=== PATIENT | female | born 1965 | race Caucasian/White ===

== ENCOUNTER 2017-11-10 15:22 | Outpatient (CLI) | payer BC | END 2017-11-10 15:23 | disposition home or self-care (01) | LOC: BICMAMMO 15:22 | DX: Z12.31 Encounter for screening mammogram for malignant neoplasm of breast (principal); Z80.3 Family history of malignant neoplasm of breast | CPT/HCPCS: 77063; 77067 ==

== ENCOUNTER 2018-01-12 11:30 | Outpatient (CLI) | payer BC | END 2018-01-12 11:31 | disposition home or self-care (01) | LOC: BICRAD 11:30 | PROVIDERS: ATTEND Internal Medicine Rheumatology | DX: M25.511 Pain in right shoulder (principal); M19.011 Primary osteoarthritis, right shoulder ==

== ENCOUNTER 2018-01-24 10:01 | Outpatient (CLI) | payer BC ==
--- NOTE | 2018-01-24 14:52 | NM ---
RADIONUCLIDE WHOLE BODY BONE SCAN: Date: 01/24/18 HISTORY: Paget's disease. Osteitis deformans. COMPARISON: 12/30/16. FINDINGS: Physiologic uptake of radiotracer throughout the skeleton is apparent. No abnormal areas of uptake ar e evident. The uptake previously seen within the lumbar spine and left pelvis is much less pronounced . IMPRESSION: Gradual resolution of scintigraphic abnormality. No new abnormalities are apparent. POS: [facility]
== END 2018-01-24 10:02 | disposition home or self-care (01) ==
LOC: NM 10:01
PROVIDERS: ATTEND Internal Medicine Rheumatology
DX: M88.9 Osteitis deformans of unspecified bone (principal)
CPT/HCPCS: 78306; A9503

== ENCOUNTER 2019-02-06 08:30 | Outpatient (CLI) | payer BC ==
--- NOTE | 2019-02-06 08:51 | RAD ---
XR Tib Fib Lt Leg 2 View HISTORY: Injury to leg. COMPARISON: None. FINDINGS: There are no signs of fracture or dislocation. No radiopaque foreign bodies are seen. IMPRESSION: Unremarkable left tib-fib.
== END 2019-02-06 08:31 | disposition home or self-care (01) ==
LOC: BICRAD 08:30
PROVIDERS: ATTEND Physician Assistant Medical
DX: S89.92XA Unspecified injury of left lower leg, initial encounter (principal)

== ENCOUNTER 2019-02-12 14:25 | Outpatient (CLI) | payer BC ==
--- NOTE | 2019-02-12 15:14 | RAD ---
LEFT FOOT THREE VIEWS: History: Fall. Left foot pain. FINDINGS/IMPRESSION: No acute fracture or dislocation is seen. Calcaneal spur is present. POS: [facility]
--- NOTE | 2019-02-12 15:28 | RAD ---
LEFT ANKLE THREE VIEWS: HISTORY: Fall. Left ankle pain. FINDINGS: Soft tissue swelling is present. The ankle mortise is maintained. No acute fracture or dislocation is identified. There are calcaneal spurs. POS: [facility]
== END 2019-02-12 14:26 | disposition home or self-care (01) ==
LOC: BICRAD 14:25
PROVIDERS: ATTEND Physician Assistant Medical
DX: M79.672 Pain in left foot (principal); M79.89 Other specified soft tissue disorders; M77.32 Calcaneal spur, left foot

== ENCOUNTER 2019-03-26 09:24 | Outpatient (CLI) | payer BC ==
--- NOTE | 2019-03-26 13:51 | NM ---
NM Bone Scan STANDARD HISTORY: History of Paget's disease also neck and shoulder pain. COMPARISON: 01/24/2018 exam. FINDINGS: Examination is performed using 33 mCi 90 9M technetium MDP. Shows a normal distribution of radiopharmaceutical. Bilateral renal as well as bladder activity is noted. IMPRESSION: Unremarkable bone scan.
== END 2019-03-26 09:25 | disposition home or self-care (01) ==
LOC: NM 09:24
PROVIDERS: ATTEND Internal Medicine Rheumatology
DX: M88.9 Osteitis deformans of unspecified bone (principal)
CPT/HCPCS: 78306; A9503

== ENCOUNTER 2019-04-09 08:07 | Outpatient (CLI) | payer BC ==
--- NOTE | 2019-04-09 08:42 | RAD ---
XR Shoulder Lt 3 View STANDARD: 04/09/2019 12:00 AM CLINICAL INDICATION: Left shoulder pain. COMPARISON: Bone scan dated March 26, 2019 FINDINGS: Bones: There is a 2.7 cm lytic lesion within the left greater tuberosity humerus. No acute fracture i s evident. Glenohumeral joint: Normal alignment. AC joint: Normal alignment. Visualized lung: Clear. Soft tissues: Within normal limits. IMPRESSION: Lytic lesion of the left proximal humerus is suspicious for possible myeloma or metastatic disease. N o suspicious scintigraphic activity is seen on recent bone scan in this region. This could be due to the lesion being an aggressive osteolytic process. Further evaluation with an MRI of the left shou lder with and without contrast is recommended. Other differential considerations include a degenerative bone cyst or unicameral bone cyst. These are felt to be less likely.
--- NOTE | 2019-04-09 10:22 | RAD ---
CERVICAL SPINE: Total of 8 views with AP views obtained in neutral, flexion, and extension position, and oblique view s obtained. INDICATION: Spondylosis. Neck pain. FINDINGS: Cervical vertebra maintain normal height and alignment. Degenerative disc changes are noted at all le vels with loss if disc space. Mild osteophytes are seen from the cervical vertebra and there is mild spondylosis posteriorly, most prominent at C4-5 and C5-6 levels. No abnormal listhesis. Mild foramina l encroachment due to uncinate hypertrophy at C4-5 and C5-6 bilaterally. IMPRESSION: There are mild to moderate degenerative changes throughout the cervical spine with loss of disc space at all levels. Posterior spondylosis appears most pronounced at C4-5 and C5-6. CT would provide more detail as to bony spondylosis and foraminal encroachment if indicated. POS: [facility]
== END 2019-04-09 08:08 | disposition home or self-care (01) ==
LOC: BICRAD 08:07
PROVIDERS: ATTEND Internal Medicine Rheumatology
DX: M47.812 Spondylosis without myelopathy or radiculopathy, cervical region (principal); M19.012 Primary osteoarthritis, left shoulder; M89.9 Disorder of bone, unspecified
CPT/HCPCS: 72052

== ENCOUNTER 2019-04-09 08:31 | Outpatient (CLI) | payer BC ==
--- NOTE | 2019-04-09 09:08 | MMO ---
Bilateral MAMMO Bilat Screen [facility]. CLINICAL HISTORY: Patient is 53 years old and is seen for screening. The patient has the following family history of breast cancer: maternal grandmother. The patient has no personal history of cancer. The patient has a history of right Ultrasound Guided Core Biopsy in December, - benign. VIEWS: The views performed were: bilateral craniocaudal with tomosynthesis and bilateral mediolateral oblique with tomosynthesis. FILMS COMPARED: The present examination has been compared to prior imaging studies performed at [facility] on 09/11/2014, 09/17/2015, 10/20/2016 and 11/10/2017. MAMMOGRAM FINDINGS: The breasts are heterogeneously dense, which could obscure a lesion on mammography. There are stable benign appearing calcifications seen in both breasts. There are no suspicious masses, suspicious calcifications, or new areas of architectural distortion. IMPRESSION: THERE IS NO MAMMOGRAPHIC EVIDENCE OF MALIGNANCY. A ROUTINE FOLLOW-UP MAMMOGRAM IN 1 YEAR IS RECOMMENDED. THE RESULTS OF THIS EXAM WERE SENT TO THE PATIENT. ACR BI-RADS Category 2 - Benign finding MAMMOGRAPHY NOTE: 1. A negative mammogram report should not delay a biopsy if a dominant of clinically suspicious mass is present. 2. Approximately 10% to 15% of breast cancers are not detected by mammography. 3. Adenosis and dense breasts may obscure an underlying neoplasm.
== END 2019-04-09 08:32 | disposition home or self-care (01) ==
LOC: BICMAMMO 08:31
DX: Z12.31 Encounter for screening mammogram for malignant neoplasm of breast (principal); Z91.89 Other specified personal risk factors, not elsewhere classified
CPT/HCPCS: 77063; 77067

== ENCOUNTER 2019-04-24 14:51 | Outpatient (CLI) | payer BC ==
--- NOTE | 2019-04-24 16:40 | MRI ---
EXAM: LEFT SHOULDER MRI WITH AND WITHOUT IV CONTRAST: 04/24/19 HISTORY: Left shoulder pain. Loss of range of motion. Abnormal lucency seen on plain film examination. Exam was protocoled for bone mass protocol. Multiplanar and multisequence MRI examination of the left shoulder is performed with and without IV c ontrast. The area of decreased bone density seen on plain film examination adjacent to the greater tuberosity appears to be just focal fatty marrow accounting for this. There is no evidence for an associated bon e lesion. There are mild AC joint arthrosis changes. Minimal increased signal at the undersurface of the supraspinatus tendon insertion probably a low grade partial thickness tear. Biceps tendon and sub scapularis tendons are unremarkable. Rotator cuff muscles are within normal limits of signal and volu me. IMPRESSION: No evidence for bone lesion involving the proximal humerus. Area of concern on plain film examination appears to just represent prominent fatty marrow on MRI. Minimal AC joint arthrosis with some downsloping of the lateral acromion and a tiny amount of fluid a nd fat stranding in the subacromial bursa. Undersurface increased signal at the supraspinatus tendon insertion evidence for a partial thickness undersurface insertional tear. No evidence for other sign ificant acute process. POS: [facility]
== END 2019-04-24 14:52 | disposition home or self-care (01) ==
LOC: BICMRI 14:51
PROVIDERS: ATTEND Internal Medicine Rheumatology
DX: M25.512 Pain in left shoulder (principal); M19.012 Primary osteoarthritis, left shoulder; M75.112 Incomplete rotator cuff tear or rupture of left shoulder, not specified as traumatic

== ENCOUNTER 2020-05-25 15:21 | Outpatient (CLI) | payer BC ==
--- NOTE | 2020-05-25 15:50 | MMO ---
Bilateral MAMMO Bilat Screen [facility]. CLINICAL HISTORY: Patient is 54 years old and is seen for screening. The patient has the following family history of breast cancer: maternal grandmother. The patient has no personal history of cancer. The patient has a history of right Ultrasound Guided Core Biopsy in December, - benign. VIEWS: The views performed were: bilateral craniocaudal with tomosynthesis and bilateral mediolateral oblique with tomosynthesis. FILMS COMPARED: The present examination has been compared to prior imaging studies performed at [facility] on 09/17/2015, 10/20/2016, 11/10/2017 and 04/09/2019. This study has been interpreted with the assistance of computer-aided detection. MAMMOGRAM FINDINGS: The breasts are heterogeneously dense, which could obscure a lesion on mammography. There are stable benign appearing calcifications seen in both breasts. Nodularity is stable. There are no suspicious masses, suspicious calcifications, or new areas of architectural distortion. IMPRESSION: THERE IS NO MAMMOGRAPHIC EVIDENCE OF MALIGNANCY. A ROUTINE FOLLOW-UP MAMMOGRAM IN 1 YEAR IS RECOMMENDED. THE RESULTS OF THIS EXAM WERE SENT TO THE PATIENT. ACR BI-RADS Category 2 - Benign finding MAMMOGRAPHY NOTE: 1. A negative mammogram report should not delay a biopsy if a dominant of clinically suspicious mass is present. 2. Approximately 10% to 15% of breast cancers are not detected by mammography. 3. Adenosis and dense breasts may obscure an underlying neoplasm. Reported by: TRAVIS VELASQUEZ MD Electonically Signed: [id number]
== END 2020-05-25 15:22 | disposition home or self-care (01) ==
LOC: BICMAMMO 15:21
PROVIDERS: ATTEND Family Medicine
DX: Z12.31 Encounter for screening mammogram for malignant neoplasm of breast (principal); Z80.3 Family history of malignant neoplasm of breast; Z91.89 Other specified personal risk factors, not elsewhere classified
CPT/HCPCS: 77063; 77067

== ENCOUNTER 2021-06-28 13:37 | Outpatient (CLI) | payer BC | END 2021-06-28 13:38 | disposition home or self-care (01) | LOC: BICMAMMO 13:37 | PROVIDERS: ATTEND Family Medicine | DX: Z12.31 Encounter for screening mammogram for malignant neoplasm of breast (principal); Z80.3 Family history of malignant neoplasm of breast; Z91.89 Other specified personal risk factors, not elsewhere classified | CPT/HCPCS: 77063; 77067 ==

== ENCOUNTER 2022-04-15 08:44 | Outpatient (CLI) | payer BC | END 2022-04-15 08:45 | disposition home or self-care (01) | LOC: NM 08:44 | PROVIDERS: ATTEND Internal Medicine Rheumatology | DX: M88.9 Osteitis deformans of unspecified bone (principal) | CPT/HCPCS: 78306; A9503 ==

== ENCOUNTER 2022-10-07 13:22 | Outpatient (CLI) | payer BC | END 2022-10-07 13:23 | disposition home or self-care (01) | LOC: BICMAMMO 13:22 | PROVIDERS: ATTEND Nurse Practitioner Community Health | DX: Z12.31 Encounter for screening mammogram for malignant neoplasm of breast (principal); Z91.89 Other specified personal risk factors, not elsewhere classified; Z80.3 Family history of malignant neoplasm of breast | CPT/HCPCS: 77063; 77067 ==